=== PATIENT | male | born 1945 | race African-American/Black ===

== ENCOUNTER 2016-07-25 17:23 | Emergency (ER) | payer OTHER ==
[~2016-07-25] VITALS: Ht 167.6 cm; Wt 63.5 kg
[2016-07-25 18:00] LABS: EOSINOPHILS % (AUTO) 0.2 % (0.0-3.0); LYMPHOCYTES % (AUTO) 38.1 % (20.0-45.0); MEAN CORPUSCULAR HEMOGLOBIN 26.3 PG (27.0-31.0); MEAN CORPUSCULAR HGB CONC 31.8 G/DL (32.0-36.0); MEAN CORPUSCULAR VOLUME 83 FL (80-99); MEAN PLATELET VOLUME 7.8 FL (6.5-10.1); MONOCYTES % (AUTO) 12.9 % (1.0-10.0); NEUTROPHILS % (AUTO) 47.8 % (45.0-75.0); PLATELET COUNT 160 K/UL (150-450); RED BLOOD COUNT 4.76 M/UL (4.70-6.10); RED CELL DISTRIBUTION WIDTH 13.3 % (11.6-14.8); WHITE BLOOD COUNT 5.3 K/UL (4.8-10.8)
[2016-07-25 18:02] VITALS: BP 136/81
[2016-07-25 18:18] LABS: TROPONIN I < 0.30 ng/mL (<=0.30)
[2016-07-25 18:22] LABS: ALANINE AMINOTRANSFERASE 14 U/L (3-41); ALBUMIN/GLOBULIN RATIO 1.5 (1.0-2.7); ANION GAP 20 (5-15); ASPARTATE AMINO TRANSFERASE 25 U/L (5-40); CARBON DIOXIDE 22 mEQ/L (20-30); CHLORIDE 97 mEQ/L (98-107); CHOLESTEROL 83 mg/dL (< 200); CREATININE 1.5 mg/dL (0.7-1.2); HEMOLYSIS 13; LDL CHOLESTEROL (CALC.) 37 mg/dL (60-99); POTASSIUM 4.2 mEQ/L (3.4-4.9); SODIUM 139 mEQ/L (135-145)
[2016-07-25 18:32] LABS: CKMB 1.8 ng/mL (< 6.7); PROTHROMBIN TIME 10.4 SEC (9.30-11.50)
[2016-07-25 19:36] VITALS: BP 140/72
[2016-07-25 20:42] VITALS: BP 137/75
--- NOTE | 2016-07-25 21:24 | Emergency Room Report ---
History of Present Illness General Chief Complaint: Stroke Symptoms Source: Patient Present Illness HPI 71-year-old male presents ED for evaluation. 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 States that when she saw the patient today at 3 PM he had these symptoms. Unknown last known well time. Patient denies any leg or arm weakness. Denies any chest pain or shortness of breath. 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 Patient was seen at PMD office today and was asked to come to ED for further evaluation. No other aggravating or relieving factors. Denies any other associated symptoms Allergies: Coded Allergies: No Known Allergies (Unverified , 07/25/16) Patient History Past Medical History: none Past Surgical History: none Pertinent Family History: none Social History: Denies: alcohol use, drug use, smoking Immunizations: UTD Reviewed Nursing Documentation: PMH: Agreed, PSxH: Agreed Nursing Documentation-PMH Past Medical History: No Stated History Review of Systems All Other Systems: negative except mentioned in HPI Physical Exam Vital Signs Date Time Temp Pulse Resp B/P Pulse Ox O2 Delivery O2 Flow Rate FiO2 07/25/16 17:31 97.9 73 18 126/69 100 Room Air Sp02 EP Interpretation: reviewed, normal General Appearance: no apparent distress, alert, GCS 15, non-toxic Head: normocephalic Eyes: bilateral eye PERRL, bilateral eye normal inspection ENT: normal ENT inspection Neck: full range of motion Respiratory: chest non-tender, lungs clear, normal breath sounds, speaking full sentences Cardiovascular #1: regular rate, rhythm, no edema Gastrointestinal: normal bowel sounds, non tender, soft, non-distended, no guarding, no rebound Rectal: deferred Genitourinary: no CVA tenderness Musculoskeletal: normal inspection Neurologic: alert, oriented x3, responsive, motor strength/tone normal, sensory intact, facial droop, other - slurred speech Psychiatric: judgement/insight normal, memory normal, mood/affect normal, no suicidal/homicidal ideation Skin: normal inspection Lymphatic: normal inspection Medical Decision Making Diagnostic Impression: Primary Impression: CVA (cerebral vascular accident) Qualified Codes: I63.9 - Cerebral infarction, unspecified Additional Impression: ARF (acute renal failure) Qualified Codes: N17.9 - Acute kidney failure, unspecified ER Course Hospital Course 71-year-old male presents ED with search recent facial droop. Last known well time unknown Differential diagnoses include: VT/unstable angina, SVT/Vtach/AFib, CVA/TIA Clinical course Patient placed on stretcher. on controlled atmospheric furnace brazer. After initial history and physical I ordered labs, EKG, and CT head labs reviewed- Cr 1.5, troponins negative, no leukocytosis, Hb/Hct stable EKG - NSR, no acute changes CT brain - no acute process noted Given aspirin in ED. no TPA given as patient is out of window for thrombolytic therapy Because of insurance patient will be transferred I. I feel this is a highly complex case requiring extensive working including EKG/Rhythm strip, Xray/CT/US, Blood/urine lab work, repeat exams while in ED, and administration of strong opiates/narcotics for pain control, admission to hospital or close patient follow up. Diagnosis - CVA, ARF Transferred in serious condition Labs Test 07/25/16 17:46 White Blood Count 5.3 K/UL (4.8-10.8) Red Blood Count 4.76 M/UL (4.70-6.10) Hemoglobin 12.5 G/DL (14.2-18.0) Hematocrit 39.4 % (42.0-52.0) Mean Corpuscular Volume 83 FL (80-99) Mean Corpuscular Hemoglobin 26.3 PG (27.0-31.0) Mean Corpuscular Hemoglobin Concent 31.8 G/DL (32.0-36.0) Red Cell Distribution Width 13.3 % (11.6-14.8) Platelet Count 160 K/UL (150-450) Mean Platelet Volume 7.8 FL (6.5-10.1) Neutrophils (%) (Auto) 47.8 % (45.0-75.0) Lymphocytes (%) (Auto) 38.1 % (20.0-45.0) Monocytes (%) (Auto) 12.9 % (1.0-10.0) Eosinophils (%) (Auto) 0.2 % (0.0-3.0) Basophils (%) (Auto) 1.0 % (0.0-2.0) Prothrombin Time 10.4 SEC (9.30-11.50) Prothromb Time International Ratio 1.0 (0.9-1.1) Activated Partial Thromboplast Time 28 SEC (23-33) Sodium Level 139 mEQ/L (135-145) Potassium Level 4.2 mEQ/L (3.4-4.9) Chloride Level 97 mEQ/L (98-107) Carbon Dioxide Level 22 mEQ/L (20-30) Anion Gap 20 (5-15) Blood Urea Nitrogen 19 mg/dL (7-23) Creatinine 1.5 mg/dL (0.7-1.2) Estimat Glomerular Filtration Rate mL/min (>60) Glucose Level 113 mg/dL (74-106) Calcium Level 9.0 mg/dL (8.6-10.2) Total Bilirubin 0.6 mg/dL (0.0-1.2) Aspartate Amino Transf (AST/SGOT) 25 U/L (5-40) Alanine Aminotransferase (ALT/SGPT) 14 U/L (3-41) Alkaline Phosphatase 85 U/L (40-129) Total Creatine Kinase 501 U/L (38-174) Creatine Kinase MB 1.8 ng/mL (< 6.7) Creatine Kinase MB Relative Index 0.3 Troponin I < 0.30 ng/mL (<=0.30) Total Protein 7.0 g/dL (6.6-8.7) Albumin 4.2 g/dL (3.5-5.2) Globulin 2.8 g/dL Albumin/Globulin Ratio 1.5 (1.0-2.7) Triglycerides Level 90 mg/dL (< 150) Cholesterol Level 83 mg/dL (< 200) LDL Cholesterol 37 mg/dL (60-99) HDL Cholesterol 28 mg/dL (> 60) Cholesterol/HDL Ratio 3.0 (3.3-4.4) EKG Diagnostic Results Rate: normal Rhythm: NSR ST Segments: no acute changes ASA given to the pt in ED: No Rhythm Strip Diag. Results EP Interpretation: yes Rhythm: NSR, no PVC's, no ectopy CT/MRI/US Diagnostic Results CT/MRI/US Diagnostic Results : Imaging Test Ordered: CT head Impression no acute process Last Vital Signs Date Time Temp Pulse Resp B/P Pulse Ox O2 Delivery O2 Flow Rate FiO2 07/25/16 20:42 98.3 70 15 137/75 100 Room Air Status: improved Disposition: XFER SHT-TRM HOSP Condition: Serious Referrals: [facility],REFERRING (PCP) MITCH RAZO M.D. Jul 25, 2016 21:24
[2016-07-25 21:36] VITALS: BP 137/75
--- NOTE | 2016-07-26 10:10 | Diagnostic Imaging Report ---
Indication: Acute CVA Technique: Contiguous 5 mm thick transaxial imaging of the head obtained in a Siemens Sensation [address] scanner. Soft tissue and bone windows generated. Total Dose length Product (DLP): [address] Dose Index Volume (CTDIvol): 70.38 mGy Comparison: none Findings: There is moderate prominence of the ventricles, basal cisterns, and cerebral sulci consistent with atrophy. Moderate, nonspecific, white matter hypoattenuation is noted throughout the brain consistent with chronic small vessel disease. There is no midline shift, edema, acute hemorrhage, mass effect, or abnormal extra-axial fluid collections. Bones and extra osseous soft tissues are unremarkable. There is mucosal thickening within the paranasal sinuses. There is sclerosis and lack of pneumatization of the right mastoid. There is a prominent erosion or postsurgical defect involving the right epitympanum. Impression: No acute intracranial bleed, mass effect or edema. Moderate atrophy of the brain. Evidence of chronic small vessel disease involving white matter tracts. Chronic right mastoiditis. Query previous surgery. Sinusitis The CT scanner at [facility] is accredited by the [employer] and the scans are performed using protocols designed to limit radiation exposure to as low as reasonably achievable to attain images of sufficient resolution adequate for diagnostic evaluation.
--- NOTE | 2016-07-26 18:31 | Cardiology Report ---
APPROVED REPORT EKG Measurement Heart [id number] Normal sinus rhythm Nonspecific T wave abnormality Abnormal ECG
== END 2016-07-25 21:36 | disposition short-term general hospital (02) ==
LOC: EMR 18:24
DX: I63.9 Cerebral infarction, unspecified (principal); N17.9 Acute kidney failure, unspecified; H70.11 Chronic mastoiditis, right ear; J32.9 Chronic sinusitis, unspecified; G31.9 Degenerative disease of nervous system, unspecified
CPT/HCPCS: 36415; 70450; 80053; 80061; 82550; 82553; 82962; 84484; 85025; 85610; 85730; 93005

== ENCOUNTER 2017-03-12 08:54 | Inpatient (IN) | payer MEDICARE, OTHER ==
[~2017-03-12] VITALS: Ht 177.8 cm; Wt 77.1 kg
[2017-03-12 09:10] VITALS: BP 143/91
[2017-03-12 09:13] LABS: BASOPHILS % (AUTO) 1.6 % (0.0-2.0); EOSINOPHILS % (AUTO) 3.8 % (0.0-3.0); LYMPHOCYTES % (AUTO) 39.3 % (20.0-45.0); MEAN CORPUSCULAR HEMOGLOBIN 26.1 PG (27.0-31.0); MEAN CORPUSCULAR VOLUME 84 FL (80-99); MEAN PLATELET VOLUME 7.4 FL (6.5-10.1); MONOCYTES % (AUTO) 9.8 % (1.0-10.0); NEUTROPHILS % (AUTO) 45.4 % (45.0-75.0); PLATELET COUNT 301 K/UL (150-450); RED BLOOD COUNT 5.47 M/UL (4.70-6.10); RED CELL DISTRIBUTION WIDTH 13.1 % (11.6-14.8); WHITE BLOOD COUNT 6.2 K/UL (4.8-10.8)
[2017-03-12 09:23] LABS: ANION GAP 4 mmol/L (5-15); CARBON DIOXIDE 29 MMOL/L (21-32); CHLORIDE 107 MMOL/L (98-107); CREATININE 1.2 MG/DL (0.55-1.30); POTASSIUM 4.8 MMOL/L (3.5-5.1); SODIUM 140 MMOL/L (136-145)
[2017-03-12 09:29] LABS: ALANINE AMINOTRANSFERASE 20 U/L (12-78); ALBUMIN/GLOBULIN RATIO 1.1 (1.0-2.7); ASPARTATE AMINO TRANSFERASE 14 U/L (15-37); TOTAL PROTEIN 7.1 G/DL (6.4-8.2); VALPROIC ACID 6 MCG/ML (50-100)
[2017-03-12 09:36] LABS: APPEARANCE,URINE CLEAR; KETONES,URINE NEGATIVE (NEGATIVE); LEUKOCYTE ESTERASE ,URINE NEGATIVE (NEGATIVE); NITRITE,URINE NEGATIVE (NEGATIVE); PH,URINE 6.5 (4.5-8.0); PROTEIN,URINE NEGATIVE (NEGATIVE); UROBILINOGEN,URINE NORMAL MG/DL (0.0-1.0)
[2017-03-12] MEDS ORDERED: levETIRAcetam 1,000mg/NS100ml 100 ML IVPB ONE (09:45)
[2017-03-12 09:52] LABS: ACETAMINOPHEN < 2 MCG/ML (10-30); ALCOHOL < 3 mg/dL
[2017-03-12] MEDS ORDERED: FOLIC ACID1 MG ORAL (10:06)
[2017-03-12] MEDS ORDERED: COLACE100 MG ORAL (10:06)
[2017-03-12] MEDS ORDERED: ASPIRIN325 MG ORAL (10:06)
[2017-03-12] MEDS ORDERED: LIPITOR20 MG ORAL (10:06)
[2017-03-12] MEDS ORDERED: LEXAPRO10 MG ORAL (10:06)
[2017-03-12] MEDS ORDERED: CARVEDILOL6.25 MG ORAL (10:06)
[2017-03-12] MEDS ORDERED: LEVETIRACETAM500 MG ORAL (10:06)
[2017-03-12] MEDS ORDERED: LISINOPRIL10 MG ORAL (10:06)
--- NOTE | 2017-03-12 10:28 | Diagnostic Imaging Report ---
Indication: Altered mental status and seizures Technique: spiral acquisitions obtained through the brain. Angled axial and coronal 5 x 5 mm slices were reconstructed. No IV contrast utilized. Radiation dose was minimized using automated exposure control Total dose length product 1580 mGycm. CTDIvol(s) 70 mGy Comparison: 06/28/2016 FINDINGS: No acute hemorrhage or edema. No mass effect or midline shift. There is age-related enlargement of the ventricles and extra axial CSF spaces. There is periventricular deep white matter ischemic change. Normal szymanski-white differentiation. Visualized orbits are unremarkable. Visualized sinuses are unremarkable. Intact calvarium. There is evidence of prior right mastoid surgery there is interim clearing of the opacities previously seen within the right external auditory canal and mastoid antrum IMPRESSION: Chronic and age-related changes. Negative for acute intracranial bleed or mass effect Other findings as noted The CT scanner at [facility] is accredited by the [employer] and the scans are performed using protocols designed to limit radiation exposure to as low as reasonably achievable to attain images of sufficient resolution adequate for diagnostic evaluation
--- NOTE | 2017-03-12 10:46 | Emergency Room Report ---
History of Present Illness General Chief Complaint: Seizure Source: Medical Record Present Illness HPI 71YOM BIBEMS from SNF with suspected seizure activity Known seizures, on Keppra No trauma HPI is otherwise limited - I was in a code blue when EMS brought patient in and they were not here by time I came back to ED Patient only stating his name was a response to any question PMHx History of dysphagia, HTN, known epilepsy, encephalopathy On keppra Was here in June 2016 for ?CVA - was transferred out Per paperwork, Dec 2016 Allergies: Coded Allergies: No Known Allergies (Unverified , 07/25/16) Patient History Past Medical History: other Past Surgical History: unable to obtain Pertinent Family History: unable to obtain Social History: Denies: smoking, alcohol use, drug use Immunizations: UTD Reviewed Nursing Documentation: PMH: Agreed, PSxH: Agreed Nursing Documentation-PMH Hx Hypertension: Yes Hx Neurological Problems: Yes - Encephalopathy, Cerebral infarction, dysphagia Hx Seizures: Yes Review of Systems All Other Systems: limited - Limtied by patient's dysphasia Physical Exam Vital Signs Date Time Temp Pulse Resp B/P (MAP) Pulse Ox O2 Delivery O2 Flow Rate FiO2 03/12/17 08:46 98.2 76 15 153/84 100 Room Air 03/12/17 09:10 100 Sp02 EP Interpretation: reviewed, normal General Appearance: normal inspection, well appearing, no apparent distress, alert, GCS 15, non-toxic Head: normocephalic, atraumatic Eyes: bilateral eye PERRL, bilateral eye EOMI ENT: normal ENT inspection, hearing grossly normal, normal voice Neck: normal inspection, full range of motion, supple, no bony tend Respiratory: normal inspection, lungs clear, normal breath sounds, no respiratory distress, no retraction, no wheezing Cardiovascular #1: regular rate, rhythm, no edema Gastrointestinal: normal inspection, normal bowel sounds, non tender, soft, no guarding, no hernia Genitourinary: no CVA tenderness Musculoskeletal: normal inspection, back normal, normal range of motion, Tete' s Sign negative Neurologic: normal inspection, alert, responsive, tariff supervisor III-XII nml as tested, motor strength/tone normal, speech normal Psychiatric: normal inspection, judgement/insight normal, mood/affect normal Skin: normal inspection, normal color, no rash Medical Decision Making Medicare Attestation I Jada Story MD hereby attest that the medical record entry for date of service, 03/12/17 accurately reflects signatures/notations that I made in my capacity as MD when I treated/diagnosed the above listed Medicare beneficiary. I attest that this information is true, accurate and complete to the best of my knowledge. I understand that any falsification, omission, or concealment of material fact may subject me to administrative, civil, or criminal liability. This patient warrants hospital admission for extreme of age and has a condition that cannot be treated as outpatient. Diagnostic Impression: Primary Impression: Seizure disorder ER Course Witnsessed seizure, likely breakthru - possible related to previous CVA On keppra IV Keppra given here No focal motor neuro extremities deficits Patient repeatedly just states his name when asked any questions It is unknown if he has history of dysphasia or, if this is new, when it started Because of this, thombolytics not indicated at this time Labs review: No acute abnormalitiies No acute changes on CT head here Endorsed to Dr Pires for Dr Dan at 1044am Tele admit EKG Diagnostic Results Rate: normal Rhythm: NSR ST Segments: no acute changes ASA given to the pt in ED: No Rhythm Strip Diag. Results EP Interpretation: yes Rate: 67 Rhythm: NSR, no PVC's, no ectopy Last Vital Signs Date Time Temp Pulse Resp B/P (MAP) Pulse Ox O2 Delivery O2 Flow Rate FiO2 03/12/17 09:10 98.1 69 17 143/91 100 Room Air 100 Status: improved Disposition: ADMITTED INPATIENT Condition: Serious Referrals: ELODIA DAN (PCP) JADA STORY M.D. Mar 12, 2017 10:46
[2017-03-12 11:15] VITALS: BP 149/77
[2017-03-12 11:38] VITALS: BP 161/87
--- NOTE | 2017-03-12 12:45 | Neurology Progress Note ---
Objective Physical Exam Last Vital Signs Date Time Temp Pulse Resp B/P (MAP) Pulse Ox O2 Delivery O2 Flow Rate FiO2 03/12/17 11:38 97.5 64 19 161/87 98 Room Air 03/12/17 11:15 100 Laboratory Tests Test 03/12/17 09:00 03/12/17 09:25 White Blood Count 6.2 K/UL (4.8-10.8) Red Blood Count 5.47 M/UL (4.70-6.10) Hemoglobin 14.3 G/DL (14.2-18.0) Hematocrit 46.0 % (42.0-52.0) Mean Corpuscular Volume 84 FL (80-99) Mean Corpuscular Hemoglobin 26.1 PG (27.0-31.0) L Mean Corpuscular Hemoglobin Concent 31.0 G/DL (32.0-36.0) L Red Cell Distribution Width 13.1 % (11.6-14.8) Platelet Count 301 K/UL (150-450) Mean Platelet Volume 7.4 FL (6.5-10.1) Neutrophils (%) (Auto) 45.4 % (45.0-75.0) Lymphocytes (%) (Auto) 39.3 % (20.0-45.0) Monocytes (%) (Auto) 9.8 % (1.0-10.0) Eosinophils (%) (Auto) 3.8 % (0.0-3.0) H Basophils (%) (Auto) 1.6 % (0.0-2.0) Sodium Level 140 MMOL/L (136-145) Potassium Level 4.8 MMOL/L (3.5-5.1) Chloride Level 107 MMOL/L (98-107) Carbon Dioxide Level 29 MMOL/L (21-32) Anion Gap 4 mmol/L (5-15) L Blood Urea Nitrogen 15 mg/dL (7-18) Creatinine 1.2 MG/DL (0.55-1.30) Estimat Glomerular Filtration Rate mL/min (>60) Glucose Level 92 MG/DL (74-106) Calcium Level 9.0 MG/DL (8.5-10.1) Total Bilirubin 0.7 MG/DL (0.2-1.0) Aspartate Amino Transf (AST/SGOT) 14 U/L (15-37) L Alanine Aminotransferase (ALT/SGPT) 20 U/L (12-78) Alkaline Phosphatase 104 U/L (46-116) Troponin I 0.005 ng/mL (0.000-0.056) Total Protein 7.1 G/DL (6.4-8.2) Albumin 3.7 G/DL (3.4-5.0) Globulin 3.4 g/dL Albumin/Globulin Ratio 1.1 (1.0-2.7) Salicylates Level 0.9 ug/mL (2.8-20) L Acetaminophen Level < 2 MCG/ML (10-30) L Phenytoin (Dilantin) Level < 0.4 ug/mL (10-20) L Valproic Acid (Depakene) Level 6 MCG/ML (50-100) L Phenobarbital Level < 1.0 ug/mL (15-40) L Serum Alcohol < 3 mg/dL Urine Color Pale yellow Urine Appearance Clear Urine pH 6.5 (4.5-8.0) Urine Specific [place] 1.005 (1.005-1.035) Urine Protein Negative (NEGATIVE) Urine Glucose (UA) Negative (NEGATIVE) Urine Ketones Negative (NEGATIVE) Urine Occult Blood Negative (NEGATIVE) Urine Nitrite Negative (NEGATIVE) Urine Bilirubin Negative (NEGATIVE) Urine Urobilinogen Normal MG/DL (0.0-1.0) Urine Leukocyte Esterase Negative (NEGATIVE) Impression/Recommendations Problems: (1) acute onset of expressive aphasia. r/o acute iaschemic stroke (2) Seizure disorder Status: stable Recommendations examined----- orders given EFE ZUNIGA Mar 12, 2017 12:45
[2017-03-12] MEDS: LORazepam Inj 2mg/ml 1ml IV PRN (13:04)
[2017-03-12] MEDS ORDERED: Haloperidol Decanoate 50mg Inj IM ONE (14:45)
[2017-03-12] MEDS ORDERED: Haloperidol 5mg/ml Inj IM ONE (15:15)
[2017-03-12 15:46] VITALS: BP 125/75
[2017-03-12] MEDS ORDERED: LORazepam Inj 2mg/ml 1ml IV PRN (17:45)
[2017-03-12 20:00] VITALS: BP 136/76
[2017-03-12] MEDS: Docusate 100mg cap ORAL SCH (20:23)
[2017-03-12] MEDS: Phenytoin 100mg cap ORAL SCH (21:20)
[2017-03-12] MEDS: Carvedilol 6.25mg Tab ORAL SCH (21:21)
[2017-03-12] MEDS: Atorvastatin 20mg tab ORAL SCH (21:21)
[2017-03-12] MEDS: Enoxaparin 60mg Inj SUBQ SCH (22:26)
[2017-03-13] VITALS (9 sets, daily range): BP systolic 125–164; BP diastolic 66–95
--- NOTE | 2017-03-13 01:45 | History and Physical Report ---
DATE OF ADMISSION: 03/12/2017 HISTORY OF PRESENT ILLNESS: This is a 71-year-old male, came to the emergency room for altered mental status and seizure. The patient currently alert, awake, and feeling better. He has no distress. PAST MEDICAL HISTORY: Seizure and hypertension. MEDICATIONS: See the list. ALLERGIES: NKA. PHYSICAL EXAMINATION: GENERAL: This is an elderly male, who is currently awake, comfortable. VITAL SIGNS: Blood pressure is 130/70, pulse 64, respirations 18. No fever. SKIN: Good skin turgor. HEENT: AT/NC. EOMI. PERRLA. NECK: Supple. No JVD. CHEST: Bilaterally clear. CARDIOVASCULAR: Regular rhythm. No gallop. No murmur. ABDOMEN: Soft. Positive bowel sounds. Nontender. GENITOURINARY: Deferred. EXTREMITIES: No swelling. LABORATORY AND DIAGNOSTIC DATA: Not available. ASSESSMENT AND PLAN: 1. Altered mental status. 2. Seizure. 3. Hypertension. 4. Generalized weakness. We will currently continue current treatment. Consider Neurology consult. Continue current medical treatment. Advance diet. We will give him IV fluid, Ativan, and follow up the lab. Add Dilantin. Continue Keppra. Kenrick Lakhani M.D. DR: Maurice JOB#: [id number] CC:
[2017-03-13] MEDS: LORazepam Inj 2mg/ml 1ml IV PRN ×2 (05:18→15:16)
[2017-03-13] MEDS: Carvedilol 6.25mg Tab ORAL SCH ×2 (08:09→21:09)
[2017-03-13] MEDS: Docusate 100mg cap ORAL SCH ×2 (08:11→17:08)
[2017-03-13] MEDS: Lisinopril 10mg tab ORAL SCH (08:12)
[2017-03-13] MEDS: Enoxaparin 60mg Inj SUBQ SCH ×2 (08:14→21:10)
--- NOTE | 2017-03-13 08:32 | Diagnostic Imaging Report ---
Indication: Altered mental status Technique: sagittal T1 fast spin echo, axial T1 FLAIR, axial T2 FLAIR, axial T2 FS PROPELLER, axial T2* GRE, axial diffusion weighted images. ADC and exponential ADC maps generated Comparison: Head CT earlier the same day Findings:There is some image degradation due to patient motion. Lacunar infarcts are seen in the bilateral thalami, bilateral noel radiata, and centrally within the rajeev. There is extensive periventricular deep white matter low-attenuation. There is suggestion of some cortical encephalomalacia in the posterior left temporal lobe. No abnormal areas of restricted diffusion to suggest acute infarction. No acute hemorrhage or edema. No mass effect nor midline shift. Is marked age-related enlargement of ventricles and extra-axial CSF spaces. Visualized orbits and sinuses are unremarkable. The vascular flow voids are preserved. Impression: Chronic and age-related changes, as described. Old lacunar infarcts, as described Negative for acute intracranial bleed or mass effect or infarct
--- NOTE | 2017-03-13 10:22 | Cardiac Electrophysiology PN ---
Subjective Subjective `Cardiology consult dictated.HTN, Abn ECG, Syncope vs Seizure. # [id number] Objective Last 24 Hour Vital Signs Date Time Temp Pulse Resp B/P (MAP) Pulse Ox O2 Delivery O2 Flow Rate FiO2 03/13/17 08:12 164/79 03/13/17 08:09 54 164/79 03/13/17 08:00 63 03/13/17 08:00 97.7 54 20 164/79 98 Room Air 03/13/17 05:15 96.6 68 16 138/86 99 Room Air 03/13/17 04:11 97.9 69 20 125/77 96 Room Air 03/13/17 04:00 62 03/13/17 00:36 97.8 66 18 129/74 96 Room Air 03/13/17 00:00 64 03/12/17 21:21 64 129/73 03/12/17 20:00 81 03/12/17 20:00 97.9 84 20 136/76 96 Room Air 03/12/17 16:00 62 03/12/17 15:46 97.3 61 20 125/75 97 Room Air 03/12/17 11:38 97.5 64 19 161/87 98 Room Air 03/12/17 11:24 68 03/12/17 11:15 98.1 62 16 149/77 100 Room Air 100 03/12/17 11:15 62 16 149/77 100 Room Air 100 Intake and Output 03/13/17 03/14/17 19:00 07:00 Intake Total 225 ml Balance 225 ml IV Total 225 ml Microbiology Date/Time Source Procedure Growth Status 03/12/17 09:30 Nasal Nares Received 03/12/17 09:30 Rectum Received KAI LINDSAY Mar 13, 2017 10:22
--- NOTE | 2017-03-13 12:28 | Neurology Progress Note ---
Interim History Interim History ROS Limited/Unobtainable: Yes Complaints: none Events: no sz noted Objective Physical Exam Last Vital Signs Date Time Temp Pulse Resp B/P (MAP) Pulse Ox O2 Delivery O2 Flow Rate FiO2 03/13/17 12:00 97.5 80 19 140/85 98 Room Air 03/12/17 11:15 100 General: well developed, well nourished, no acute distress Head: normocophalic, atraumatic Neck: no rigidity Neurologic Exam Mental Status: awake, alert, other - ox2, confused Speech: no dysarthia Language: other - word finding difficulty Cranial Nerve II: no papilledema Cranial Nerves III, IV, : pupils Cranial Nerve V: masseters function normal Cranial Nerve VII: normal facial expressions Cranial Nerve VIII: no nystagmus Cranial Nerve IX: gag response Cranial Nerve XI: trapezii function normal Cranial Nerve XII: no tongue atrophy/fasciculations Motor System: strength 5/5, no involuntary movement, no muscle wasting Sensory: normal pinprick Coordination: other - +romberg Deep Tendon Reflexes: 1+ bicep (L), 1+ bicep (R), 1+ tricep (L), 1+ tricep (R) , 1+ brachioradialis (L), 1+ brachioradialis (R), 1+ knee (L), 1+ knee (R), 1+ ankle (L), 1+ ankle (R) Reflexes: mute plantar (L), mute plantar (R) Stance: other - unstable Gait: other - unstable Impression/Recommendations Problems: (1) chronic seizure disorder, exacerbation (2) extensive ischemic cerebrovascular disease (3) multiple lacunar strokes, old Status: stable Recommendations examined----- orders given # [id number] keppra 1000mg bid EEG EFE ZUNIGA Mar 13, 2017 12:28
[2017-03-13 15:37] LABS: INR 1.1 (0.9-1.1); PROTHROMBIN TIME 11.3 SEC (9.30-11.50)
--- NOTE | 2017-03-13 16:45 | Diagnostic Imaging Report ---
APPROVED REPORT CPT Code: 41207 Vascular Symptoms Syncope Doppler Spectral Velocity Analysis RightLeft RIGHT SIDE: CCA/ECA - Imaging reveals no significant plaque in the common carotid and external carotid arteries. ICA - Imaging reveals irregular plaque in the internal carotid artery. The Doppler signal indicates the degree of stenosis is mild (30%) in the internal carotid artery. LEFT SIDE: CCA/ECA - Imaging reveals no significant plaque in the common carotid and external carotid arteries. ICA - Imaging reveals irregular plaque in the internal carotid artery. The Doppler signal indicates the degree of stenosis is mild (30%) in the internal carotid artery. VERTEBRAL- The vertebral arteries are within normal limits, bilaterally.
--- NOTE | 2017-03-13 16:47 | Diagnostic Imaging Report ---
APPROVED REPORT CPT Code: 34746 Present Symptoms Lower Extremity Pain: Comments: Hx HTN, DVT. RIGHT LEG: Venous imaging reveals a patent deep venous system. There is no evidence of thrombus within the femoral, popliteal or tibial segments. The greater saphenous vein is also within normal limits. Doppler indicates normal spontaneous flow within these segments. LEFT LEG: Venous imaging reveals acute, non-occlusive thrombus in the proximal superficial femoral vein. The tip is distal to the confluence of the proximal superficial femoral and profunda femoris veins. Imaging also reveals patency of the common femoral, mid and distal superficial femoral, popliteal and calf veins. The greater saphenous vein is within normal limits. ELISEO Villanueva was informed of abnormal results at 21:05 hrs.
[2017-03-13] MEDS ORDERED: Warfarin Sodium 5mg ORAL ONE (17:00)
--- NOTE | 2017-03-13 17:15 | Consultation ---
DATE OF CONSULTATION: 03/13/2017 CARDIOLOGY CONSULTATION CONSULTING PHYSICIAN: Tyler Conn M.D. REFERRING PHYSICIAN: Darius Rico M.D. REASON FOR CONSULTATION: Management of hypertension and syncope. HISTORY OF PRESENT ILLNESS: The patient is a 71-year-old gentleman with history of hypertension and seizure disorder who was brought to the hospital for altered mental status. The patient was confused and information was limited to the chart. The patient is not able to provide any meaningful information. The patient was then admitted and a Cardiology consultation was obtained for further evaluation. PAST MEDICAL HISTORY: 1. Hypertension. 2. Seizure disorder. MEDICATIONS: Per reconciliation. ALLERGIES: He has no known drug allergies. REVIEW OF SYSTEMS: His review of systems was negative other than what was mentioned in the history of present illness. PHYSICAL EXAMINATION: VITAL SIGNS: Blood pressure of 164/79, pulse 54, respirations 18, and temperature 97.7 degrees. HEAD AND NECK: No JVD. LUNGS: Clear. CARDIOVASCULAR: Regular S1 and S2 with no gallop or murmur. ABDOMEN: Soft. EXTREMITIES: No pitting edema. LABORATORY AND DIAGNOSTIC DATA: His laboratory show white count of 6.2, hemoglobin 14.0, hematocrit of 46, and platelet count 301. Sodium 140, potassium is 4.8, BUN of 15, creatinine 1.2, and glucose of 92. Troponin is negative. Urine toxicology is negative. Urinalysis is negative. ASSESSMENT AND PLAN: 1. Syncope versus seizures. The patient does not have any arrhythmia on telemetry. We will get an EKG and get an echocardiogram to evaluate for ejection fraction and wall motion abnormality. The EKG in chart showed sinus rhythm with nonspecific inferior ST-T wave abnormalities. The EKG will be repeated as well. 2. Hypertension. Continue lisinopril 10 mg daily and Coreg 6.25 mg b.i.d. I will add p.r.n. clonidine to his medical regimen. 3. Hyperlipidemia, on Lipitor. 4. Seizure disorder, on Dilantin and Haldol, under management of Dr. Kimble. Thank you very much, Dr. Rico and Dr. Lakhani, for allowing me to participate in the care of this patient. Please do not hesitate to contact me for any questions regarding my evaluation. Tyler Conn M.D. DR: ANGEL JOB#: [id number] CC:
--- NOTE | 2017-03-13 21:00 | Consultation ---
DATE OF CONSULTATION: 03/12/2017 NEUROLOGICAL CONSULTATION DATE OF ADMISSION: 03/12/2017. REQUESTING PHYSICIAN: Darius Rico M.D. PRIMARY DOCTOR: Vin Lakhani M.D. HISTORY OF PRESENT ILLNESS: A 71-year-old man, resident of a nursing care facility, was brought to this hospital for assessment of possible seizure event. Paramedics were called to the scene, found him sitting in the bed being "postictal." While the facility informed that the patient had one witnessed seizure episode lasting 30 seconds without any trauma, the patient was found to be confused, disoriented, and nursing staff informed that the patient did not take his seizure medication in the morning. He was brought to emergency room, where he was not responding verbally except keep repeating the same word. His vital signs were stable. Blood pressure 153/84 and temperature 98.2 degrees. The patient was given extra dose of IV Keppra. During examination, there was no focal deficit noted. The patient appears to have evidence of aphasia. His EKG normal sinus rhythm. His imaging study included a CT scan of the brain, which revealed chronic age-related changes, negative for acute abnormality. This followed by MRI of the brain without contrast. This revealed a lacunar infarct, bilateral thalami, bilateral noel radiata and within the rajeev, with extensive periventricular deep white matter low attenuation, suggestion of some cortical encephalomalacia in posterior left temporal lobe, but there was no evidence of acute stroke noted. Laboratory work included unremarkable CBC. Chemistry panel was essentially normal including troponin. Urinalysis was normal. Toxicology panel revealed no abnormality, with no evidence of anticonvulsant associated . The patient has extensive medical history. His treatment prior to admission included aspirin, atorvastatin, carvedilol, escitalopram, folate, Keppra 500 mg b.i.d., and lisinopril. The patient's medical issues included hypertension and seizure disorder. Since admission to present time, there was no further paroxysmal event noted. SOCIAL HISTORY: Resident of nursing facility. The patient originally from [facility]. REVIEW OF SYMPTOMS: The patient with significant aphasia and unable to provide with a history. PHYSICAL EXAMINATION: GENERAL: A well-developed, well-nourished man, not in acute distress. VITAL SIGNS: Stable. Blood pressure 125/77 and temperature 97.9 degrees. HEENT: Head: Normocephalic. No evidence of trauma. Eyes, ears, and throat are clear. NECK: Supple. No meningeal signs. MUSCULOSKELETAL: Examination unremarkable. No deformities. Peripheral pulses 1+ symmetric. MENTAL STATUS: The patient is alert. His speech is nonfluent. The patient continued to repeat some single words, unable to provide with any information, but was able to follow few simple commands. CRANIAL NERVES II: Pupils both responding to light and accommodation. Extraocular movement full range. CRANIAL NERVES V: Normal corneal responses. CRANIAL NERVES VII: No facial asymmetry. CRANIAL NERVES VIII: Grossly normal hearing. CRANIAL NERVES IX THROUGH XII: Tongue is in midline. Symmetric palate elevation. MOTOR EXAMINATION: Revealed slight rigidity diffusely, but strength 5/5 in both upper extremities and both lower extremities. No involuntary movement noted. No muscle wasting. Deep tendon reflexes 2+ bilaterally. Plantar response is mute. SENSORY EXAMINATION: Withdrawing to pin in both upper and lower extremities. Gait unstable, requires assistance. IMPRESSION: 1. Chronic seizure disorder, exacerbation with persistent postictal state. 2. 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 3. Expressive aphasia, cognitive loss, abnormal gait, all related to underlying cerebrovascular disease. RECOMMENDATIONS: Increase Keppra up 1000 mg b.i.d. Get EEG study. Observe for any paroxysmal events. Continue with aspirin, statins, and maintain on supportive care. Thank you for allowing me to see this interesting patient in neurological consultation. Mainor Kimble M.D. DR: Shubham JOB#: [id number] CC:
--- NOTE | 2017-03-13 21:00 | Progress Note ---
DATE: 03/13/2017 SUBJECTIVE: The patient is a 71-year-old male who is currently in bed, confused. He is removing his IV line. He has otherwise no distress. No seizure since yesterday. OBJECTIVE: VITAL SIGNS: His vital signs are stable. CHEST: Bilaterally clear. CARDIOVASCULAR: Regular rhythm. ABDOMEN: Soft. EXTREMITIES: No CCE. ASSESSMENT AND PLAN: 1. Altered mental status. 2. Seizure. 3. Probable dementia. We will consider psychiatric consult. Waiting for EEG. Continue current medical treatment. Discussed with charge nurse. Kenrick Lakhani M.D. DR: VIKASH JOB#: [id number] CC:
[2017-03-13] MEDS: Atorvastatin 20mg tab ORAL SCH (21:08)
[2017-03-13] MEDS: Phenytoin 100mg cap ORAL SCH (21:09)
[2017-03-14] MEDS: LORazepam Inj 2mg/ml 1ml IV PRN (00:22)
[2017-03-14 04:30] VITALS: BP 140/78
[2017-03-14 07:33] LABS: BASOPHILS % (AUTO) 1.7 % (0.0-2.0); EOSINOPHILS % (AUTO) 3.9 % (0.0-3.0); LYMPHOCYTES % (AUTO) 39.5 % (20.0-45.0); MEAN CORPUSCULAR HEMOGLOBIN 26.7 PG (27.0-31.0); MEAN CORPUSCULAR HGB CONC 31.9 G/DL (32.0-36.0); MEAN CORPUSCULAR VOLUME 84 FL (80-99); MEAN PLATELET VOLUME 6.8 FL (6.5-10.1); MONOCYTES % (AUTO) 9.7 % (1.0-10.0); NEUTROPHILS % (AUTO) 45.2 % (45.0-75.0); PLATELET COUNT 273 K/UL (150-450); RED BLOOD COUNT 5.17 M/UL (4.70-6.10); RED CELL DISTRIBUTION WIDTH 12.8 % (11.6-14.8)
[2017-03-14 07:42] VITALS: BP 140/80
[2017-03-14 07:49] LABS: PROTHROMBIN TIME 10.8 SEC (9.30-11.50)
[2017-03-14 07:56] LABS: ANION GAP 6 mmol/L (5-15); CALCIUM 8.7 MG/DL (8.5-10.1); CARBON DIOXIDE 26 MMOL/L (21-32); CHLORIDE 106 MMOL/L (98-107); CHOLESTEROL 91 MG/DL (< 200); CHOLESTEROL/HDL RATIO 2.9 (3.3-4.4); CREATININE 1.1 MG/DL (0.55-1.30); POTASSIUM 4.7 MMOL/L (3.5-5.1); SODIUM 138 MMOL/L (136-145); THYROID STIMULATING HORMONE 1.468 uiU/mL (0.360-3.740)
[2017-03-14] MEDS: Docusate 100mg cap ORAL SCH (09:00)
[2017-03-14] MEDS: Carvedilol 6.25mg Tab ORAL SCH (09:01)
[2017-03-14] MEDS: Lisinopril 10mg tab ORAL SCH (09:01)
[2017-03-14] MEDS: Enoxaparin 60mg Inj SUBQ SCH (09:02)
--- NOTE | 2017-03-14 09:02 | Consultation ---
DATE OF CONSULTATION: 03/13/2017 HEMATOLOGY/ONCOLOGY CONSULTATION CONSULTING PHYSICIAN: Hollis Yang M.D. REQUESTING PHYSICIAN: Darius Rico M.D. REASON FOR CONSULTATION: Evaluation of anticoagulation in a patient with a history of stroke as well as an acute nonocclusive thrombus in the proximal superficial vein in the left leg. IDENTIFICATION DATA: Dear Dr. Darius Rico, The patient is a pleasant 71-year-old male with past medical history, which is significant for seizure disorder, hypertension, at this time presents to the hospital with altered mental status, noted to be encephalopathic, confused, have DVT protocol assuming that the Hematology Service was consulted for further evaluation. PAST MEDICAL HISTORY: Seizure disorder. MEDICATIONS: Have been reviewed. ALLERGIES: No known drug allergies. SOCIAL HISTORY: No alcohol, tobacco, or drug use. FAMILY HISTORY: Noncontributory. REVIEW OF SYSTEMS: Difficult to obtain given mental status. PHYSICAL EXAMINATION: GENERAL: The patient is in no acute distress. VITAL SIGNS: Reviewed. PULMONARY: Decreased breath sounds. CARDIOVASCULAR: Regular rate. No S3 or S4. ABDOMEN: Soft, nontender, and nondistended. EXTREMITIES: There is 1+ edema. LABORATORY AND DIAGNOSTIC DATA: and platelet count 101,000. Imaging, left lower extremity duplex shows DVT. ASSESSMENT AND PLAN: 1. Left lower extremity deep venous thrombosis. We will begin the patient on Coumadin and Lovenox. INR goal between 2 and 3. In addition, given potential evidence of seizure, MRI of the brain completed and recommended use of aspirin. 2. Anemia, very mild, likely secondary to hemodilution. 3. Hypertension, currently is better controlled. 4. Seizure disorder, seen by Neurology Service under the care of Dr. Kimble. I appreciate the consultation. Hollis Yang M.D. DR: Angelina JOB#: [id number] CC:
[2017-03-14 12:00] VITALS: BP 137/69
--- NOTE | 2017-03-14 14:46 | Cardiac Electrophysiology PN ---
Assessment/Plan Assessment/Plan 1. Syncope versus seizures. The patient does not have any arrhythmia on telemetry. Echocardiogram showed Nl EF and The EKG is normal. Carotid duplex also negative. 2. Hypertension. Continue lisinopril 10 mg daily and Coreg 6.25 mg b.i.d. and p.r.n. clonidine 3. Hyperlipidemia, on Lipitor. 4. Seizure disorder, on Dilantin and Haldol, under management of Dr. Kimble. Steven RN Subjective Subjective Feeling better. No seizures overnight. Sister at bedside. Objective Last 24 Hour Vital Signs Date Time Temp Pulse Resp B/P (MAP) Pulse Ox O2 Delivery O2 Flow Rate FiO2 03/14/17 12:00 97.9 62 19 137/69 99 Room Air 03/14/17 09:01 63 140/80 03/14/17 09:01 140/80 03/14/17 09:01 63 140/80 03/14/17 07:42 97.0 63 20 140/80 98 Room Air 03/14/17 04:30 97.0 66 20 140/78 99 Room Air 03/14/17 04:00 68 03/14/17 00:00 79 03/13/17 23:45 97.0 68 20 140/80 100 Room Air 03/13/17 21:09 69 144/66 03/13/17 21:09 69 144/66 03/13/17 20:00 71 03/13/17 19:50 97.5 69 20 144/66 99 Room Air 03/13/17 16:00 62 03/13/17 16:00 97.8 98 22 150/95 95 Room Air Laboratory Tests Test 03/14/17 06:25 White Blood Count 6.0 K/UL (4.8-10.8) Red Blood Count 5.17 M/UL (4.70-6.10) Hemoglobin 13.8 G/DL (14.2-18.0) L Hematocrit 43.3 % (42.0-52.0) Mean Corpuscular Volume 84 FL (80-99) Mean Corpuscular Hemoglobin 26.7 PG (27.0-31.0) L Mean Corpuscular Hemoglobin Concent 31.9 G/DL (32.0-36.0) L Red Cell Distribution Width 12.8 % (11.6-14.8) Platelet Count 273 K/UL (150-450) Mean Platelet Volume 6.8 FL (6.5-10.1) Neutrophils (%) (Auto) 45.2 % (45.0-75.0) Lymphocytes (%) (Auto) 39.5 % (20.0-45.0) Monocytes (%) (Auto) 9.7 % (1.0-10.0) Eosinophils (%) (Auto) 3.9 % (0.0-3.0) H Basophils (%) (Auto) 1.7 % (0.0-2.0) Prothrombin Time 10.8 SEC (9.30-11.50) Prothromb Time International Ratio 1.0 (0.9-1.1) Sodium Level 138 MMOL/L (136-145) Potassium Level 4.7 MMOL/L (3.5-5.1) Chloride Level 106 MMOL/L (98-107) Carbon Dioxide Level 26 MMOL/L (21-32) Anion Gap 6 mmol/L (5-15) Blood Urea Nitrogen 10 mg/dL (7-18) Creatinine 1.1 MG/DL (0.55-1.30) Estimat Glomerular Filtration Rate mL/min (>60) Glucose Level 93 MG/DL (74-106) Calcium Level 8.7 MG/DL (8.5-10.1) Troponin I 0.008 ng/mL (0.000-0.056) Pro-B-Type Natriuretic Peptide 359 pg/mL (0-125) H Triglycerides Level 47 MG/DL (0-200) Cholesterol Level 91 MG/DL (< 200) LDL Cholesterol 53 mg/dL (<100) HDL Cholesterol 31 MG/DL (40-60) L Cholesterol/HDL Ratio 2.9 (3.3-4.4) L Thyroid Stimulating Hormone (TSH) 1.468 uiU/mL (0.360-3.740) Free Thyroxine 1.06 NG/DL (0.10-1.46) Microbiology Date/Time Source Procedure Growth Status 03/12/17 09:30 Nasal Nares MRSA Culture - Final NO METHICILLIN RESISTANT STAPH AUREUS... Complete 03/12/17 09:30 Rectum VRE Culture - Final NO VANCOMYCIN RESISTANT ENTEROCOCCUS ... Complete Objective HEAD AND NECK: No JVD. LUNGS: Clear. CARDIOVASCULAR: Regular S1 and S2 with no gallop or murmur. ABDOMEN: Soft. EXTREMITIES: No pitting edema. KAI LINDSAY Mar 14, 2017 14:46
[2017-03-14] MEDS ORDERED: 1/2 NS 1000ml IV ONE (15:46)
[2017-03-14] MEDS ORDERED: Warfarin Sodium 5mg ORAL ONE (17:00)
--- NOTE | 2017-03-14 18:52 | Consultation ---
History of Present Illness General Date patient seen: Mar 13, 2017 Chief Complaint: Seizure Present Illness HPI 71-year-old male, came to the emergency room for altered mental status and seizure. the pt was confused and a poor historian, at times agitated Allergies: Coded Allergies: No Known Allergies (Unverified , 07/25/16) Medication History Scheduled Aspirin* (Aspirin*), 325 MG ORAL DAILY, (Reported) Atorvastatin Calcium* (Lipitor*), 20 MG ORAL DAILY, (Reported) Carvedilol* (Carvedilol*), 6.25 MG ORAL EVERY 12 HOURS, (Reported) Escitalopram Oxalate* (Lexapro*), 10 MG ORAL DAILY, (Reported) Folic Acid* (Folic Acid*), 1 MG ORAL DAILY, (Reported) Levetiracetam* (Levetiracetam*), 500 MG ORAL TWICE A DAY, (Reported) Lisinopril* (Lisinopril*), 10 MG ORAL DAILY, (Reported) Scheduled PRN Docusate Sodium* (Colace*), 100 MG ORAL TWICE A DAY PRN for Constipation, ( Reported) Patient History History Provided By: Patient, Family Member, PMD Healthcare decision maker Resuscitation status Advanced Directive on File No Past Medical/Surgical History Past Medical/Surgical History: (1) acute onset of expressive aphasia. r/o acute iaschemic stroke (2) multiple lacunar strokes, old (3) extensive ischemic cerebrovascular disease (4) chronic seizure disorder, exacerbation Review of Systems Psychiatric: Reports: prior hx, anxiety, depressed feelings, emotional problems Physical Exam General Appearance: no apparent distress, alert, confused Neurologic: alert, responsive, disoriented, depressed affect Last 24 Hour Vital Signs Date Time Temp Pulse Resp B/P (MAP) Pulse Ox O2 Delivery O2 Flow Rate FiO2 03/14/17 12:00 97.9 62 19 137/69 99 Room Air 03/14/17 12:00 69 03/14/17 09:01 63 140/80 03/14/17 09:01 140/80 03/14/17 09:01 63 140/80 03/14/17 08:00 65 03/14/17 07:42 97.0 63 20 140/80 98 Room Air 03/14/17 04:30 97.0 66 20 140/78 99 Room Air 03/14/17 04:00 68 03/14/17 00:00 79 03/13/17 23:45 97.0 68 20 140/80 100 Room Air 03/13/17 21:09 69 144/66 03/13/17 21:09 69 144/66 03/13/17 20:00 71 03/13/17 19:50 97.5 69 20 144/66 99 Room Air Intake and Output 03/14/17 03/15/17 19:00 07:00 Intake Total 200 ml Balance 200 ml Intake Oral 200 ml # Voids 1 Laboratory Tests Test 03/14/17 06:25 White Blood Count 6.0 K/UL (4.8-10.8) Red Blood Count 5.17 M/UL (4.70-6.10) Hemoglobin 13.8 G/DL (14.2-18.0) L Hematocrit 43.3 % (42.0-52.0) Mean Corpuscular Volume 84 FL (80-99) Mean Corpuscular Hemoglobin 26.7 PG (27.0-31.0) L Mean Corpuscular Hemoglobin Concent 31.9 G/DL (32.0-36.0) L Red Cell Distribution Width 12.8 % (11.6-14.8) Platelet Count 273 K/UL (150-450) Mean Platelet Volume 6.8 FL (6.5-10.1) Neutrophils (%) (Auto) 45.2 % (45.0-75.0) Lymphocytes (%) (Auto) 39.5 % (20.0-45.0) Monocytes (%) (Auto) 9.7 % (1.0-10.0) Eosinophils (%) (Auto) 3.9 % (0.0-3.0) H Basophils (%) (Auto) 1.7 % (0.0-2.0) Prothrombin Time 10.8 SEC (9.30-11.50) Prothromb Time International Ratio 1.0 (0.9-1.1) Sodium Level 138 MMOL/L (136-145) Potassium Level 4.7 MMOL/L (3.5-5.1) Chloride Level 106 MMOL/L (98-107) Carbon Dioxide Level 26 MMOL/L (21-32) Anion Gap 6 mmol/L (5-15) Blood Urea Nitrogen 10 mg/dL (7-18) Creatinine 1.1 MG/DL (0.55-1.30) Estimat Glomerular Filtration Rate mL/min (>60) Glucose Level 93 MG/DL (74-106) Calcium Level 8.7 MG/DL (8.5-10.1) Troponin I 0.008 ng/mL (0.000-0.056) Pro-B-Type Natriuretic Peptide 359 pg/mL (0-125) H Triglycerides Level 47 MG/DL (0-200) Cholesterol Level 91 MG/DL (< 200) LDL Cholesterol 53 mg/dL (<100) HDL Cholesterol 31 MG/DL (40-60) L Cholesterol/HDL Ratio 2.9 (3.3-4.4) L Thyroid Stimulating Hormone (TSH) 1.468 uiU/mL (0.360-3.740) Free Thyroxine 1.06 NG/DL (0.10-1.46) Height (Feet): 5 Height (Inches): 10.00 Weight (Pounds): 170 Assessment/Plan Status: stable Assessment/Plan dementia agitation Hiram Awan M.D. Mar 14, 2017 18:52
--- NOTE | 2017-03-14 18:53 | General Progress Note ---
Assessment/Plan Status: stable Subjective Date patient seen: Mar 14, 2017 Neurologic/Psychiatric: Reports: anxiety, depressed, emotional problems Allergies: Coded Allergies: No Known Allergies (Unverified , 07/25/16) Objective Last 24 Hour Vital Signs Date Time Temp Pulse Resp B/P (MAP) Pulse Ox O2 Delivery O2 Flow Rate FiO2 03/14/17 12:00 97.9 62 19 137/69 99 Room Air 03/14/17 12:00 69 03/14/17 09:01 63 140/80 03/14/17 09:01 140/80 03/14/17 09:01 63 140/80 03/14/17 08:00 65 03/14/17 07:42 97.0 63 20 140/80 98 Room Air 03/14/17 04:30 97.0 66 20 140/78 99 Room Air 03/14/17 04:00 68 03/14/17 00:00 79 03/13/17 23:45 97.0 68 20 140/80 100 Room Air 03/13/17 21:09 69 144/66 03/13/17 21:09 69 144/66 03/13/17 20:00 71 03/13/17 19:50 97.5 69 20 144/66 99 Room Air Intake and Output 03/14/17 03/15/17 19:00 07:00 Intake Total 200 ml Balance 200 ml Intake Oral 200 ml # Voids 1 Laboratory Tests 03/14/17 06:25: White Blood Count 6.0, Red Blood Count 5.17, Hemoglobin 13.8L, Hematocrit 43.3, Mean Corpuscular Volume 84, Mean Corpuscular Hemoglobin 26.7L, Mean Corpuscular Hemoglobin Concent 31.9L, Red Cell Distribution Width 12.8, Platelet Count 273, Mean Platelet Volume 6.8, Neutrophils (%) (Auto) 45.2, Lymphocytes (%) (Auto) 39.5, Monocytes (%) (Auto) 9.7, Eosinophils (%) (Auto) 3.9H, Basophils (%) (Auto ) 1.7, Prothrombin Time 10.8, Prothromb Time International Ratio 1.0, Sodium Level 138, Potassium Level 4.7, Chloride Level 106, Carbon Dioxide Level 26, Anion Gap 6, Blood Urea Nitrogen 10, Creatinine 1.1, Estimat Glomerular Filtration Rate , Glucose Level 93, Calcium Level 8.7, Troponin I 0.008, Pro-B- Type Natriuretic Peptide 359H, Triglycerides Level 47, Cholesterol Level 91, LDL Cholesterol 53, HDL Cholesterol 31L, Cholesterol/HDL Ratio 2.9L, Thyroid Stimulating Hormone (TSH) 1.468, Free Thyroxine 1.06 Height (Feet): 5 Height (Inches): 10.00 Weight (Pounds): 170 General Appearance: no apparent distress, alert, confused Neurologic: alert, responsive, disoriented, depressed affect Hiram Awan M.D. Mar 14, 2017 18:53
--- NOTE | 2017-03-14 21:02 | Progress Note ---
DATE: 03/14/2017 SUBJECTIVE: This 71-year-old male who is currently in bed and confused, but he is doing much better. He is in no distress. The patient came with altered mental status, seizure activity. The patient is currently alert, awake, sitting in the chair. He has no distress. OBJECTIVE: VITAL SIGNS: Stable. CHEST: Bilaterally clear. CARDIOVASCULAR: Regular rhythm. No gallop. No murmur. ABDOMEN: Soft. EXTREMITIES: CCE. NEUROLOGICAL: Alert, awake, sitting in the chair, slightly confused. ASSESSMENT AND PLAN: 1. Cerebrovascular accident. 2. Hypertension. 3. Hyperlipidemia. 4. Early dementia. Discussed with the neurologist, Dr. Kimble. EEG results are pending, but he is already on Keppra. He had no seizure for the last three days. Discharge back to the alf. Discharge medication, added Keppra. We will discontinue Coumadin because he is at high risk on the fall. Continue rest of the treatment. Activity, back to chair and continue current treatment. Kenrick Lakhani M.D. DR: VIKASH JOB#: [id number] CC:
--- NOTE | 2017-03-14 23:46 | Electroencephalogram ---
DATE OF PROCEDURE: 03/13/2017 REQUESTING PHYSICIAN: Vin Lakhani M.D. HISTORY: This is a 71-year-old man with multiple strokes in the past and chronic seizure disorder, maintained on Keppra, Norvasc, and Lipitor, admitted with what seems exacerbation of seizures. EEG was requested to identify epileptogenic focus or ongoing seizure activities. During recording, awake, drowsy, or asleep, but poorly cooperative and aphasic. EEG was done using 18 electrodes placed [id number], [id number] montages according to 10/20 International System. Most wakeful portions of recording, background consists of very low voltage, often poorly identifiable frequency activities, predominantly 6 to 7 cycles per second provided by fast or low-voltage beta activities bilaterally. The patient was in and out of drowsiness with further attenuation of background and predominance of theta activities ranging 5 to 7 cycles per second. There was no asymmetry from side to side. There were no spike or wave noted. IMPRESSION: Abnormal EEG in presence of generalized diffuse slowing. COMMENT: The absence of paroxysmal event on a single recording does not rule out seizure disorder. Mainor Kimble M.D. DR: Shubham JOB#: [id number] CC:
--- NOTE | 2017-03-16 15:49 | Cardiology Report ---
APPROVED REPORT EKG Measurement Heart [id number] Normal sinus rhythm Normal ECG
--- NOTE | 2017-03-17 10:22 | Discharge Summary ---
Discharge Summary Hospital Course Date of Admission Mar 12, 2017 at 10:01 Date of Discharge Mar 14, 2017 at 15:47 Admitting Diagnosis seizure HPI Emanuel Elder is a 71 year old male who was admitted on Mar 12, 2017 at 10:01 for Seizure Hospital Course dc summary #[id number] Discharge Medications Continued Medications: Aspirin* (Aspirin*) 325 Mg Tablet 325 MG ORAL DAILY, TAB Atorvastatin Calcium* (Lipitor*) 20 Mg Tablet 20 MG ORAL DAILY, #30 TAB 0 Refills Carvedilol* (Carvedilol*) 6.25 Mg Tablet 6.25 MG ORAL EVERY 12 HOURS, TAB Docusate Sodium* (Colace*) 100 Mg Capsule 100 MG ORAL TWICE A DAY PRN for Constipation, CAP Escitalopram Oxalate* (Lexapro*) 10 Mg Tablet 10 MG ORAL DAILY, TAB Folic Acid* (Folic Acid*) 1 Mg Tablet 1 MG ORAL DAILY, TAB Levetiracetam* (Levetiracetam*) 500 Mg Tablet 500 MG ORAL TWICE A DAY, #60 TAB 0 Refills Lisinopril* (Lisinopril*) 10 Mg Tablet 10 MG ORAL DAILY, TAB Discharge Condition Upon Discharge: stable Discharge Disposition Patient was discharged to SNF/Subacute Facility(03) Discharge Diagnoses: Discharge Instructions Discharge Instructions Special Instructions I have been assigned to complete a D/C Summary on this account. I was not involved in the patient management Nadja Kruse NP (Vanchtein) Mar 17, 2017 10:22
--- NOTE | 2017-03-17 10:51 | Cardiology Report ---
APPROVED REPORT EXAM: Two-dimensional and M-mode echocardiogram with Doppler and color Doppler. INDICATION Seizure Disorder M-Mode DIMENSIONS IVSd1.2 (0.7-1.1cm)Left Atrium (MM)3.9 (1.6-4.0cm) LVDd4.1 (3.5-5.6cm)Aortic Root2.9 (2.0-3.7cm) PWd1.3 (0.7-1.1cm)Aortic Cusp Exc.1.9 (1.5-2.0cm) LVDs2.4 (2.5-4.0cm) PWs2.1 cm Normal left ventricular chamber size, systolic function and wall motion. Left ventricular ejection fraction estimated to be 55%. Concentric left ventricular hypertrophy. Anterior Echo-free space, may be due to pericardial fat or effusion. All other cardiac chamber sizes are within normal limits. Mild focal aortic valve sclerosis with adequate cusp excursion. Mildly thickened mitral valve leaflets with normal excursion. Mild mitral annulus and aortic root calcification. Normal pulmonic valve structure. Normal tricuspid valve structure. IVC at normal size with physiologic collapse. A color flow and spectral Doppler study was performed and revealed: Trace aortic regurgitation. Mild mitral regurgitation. Mitral diastolic velocities suggest reduced left ventricular relaxation c/w mild LV diastolic dysfunction (Grade I ). Mild tricuspid regurgitation. Tricuspid systolic velocities suggests peak right ventricular systolic pressure of 25 mmHg. Trace pulmonic regurgitation present.
--- NOTE | 2017-03-17 17:30 | Discharge Summary 2 SIG ---
DATE OF ADMISSION: 03/12/2017 DATE OF DISCHARGE: 03/14/2017 REASON FOR ADMISSION: 71-year-old male, resident of [facility] facility, with past medical history significant for seizure disorder, hypertension, encephalopathy, multiple CVA, dysphagia, presented from the [facility] facility for evaluation of seizures.. The patient was on Keppra at the facility. No evidence of trauma. The patient was a poor historian. Workup in the emergency room started with CT of the head which was negative for any acute intracranial pathology. MRI of the brain subsequently was done and revealed old lacunar infarct, no evidence of acute intracranial pathology. Blood pressure was slightly elevated - 153/84, pulse oximetry was stable on room air. EKG revealed normal sinus rhythm, no acute ischemic changes. Troponin negative. No focal -neurologic deficits were noted. The patient was admitted for further management. HOSPITAL COURSE: The patient admitted. Neurology and cardiology consults were requested. Neurologist had seen and evaluated the patient, diagnosed the patient with chronic seizure disorder exacerbation as well as extensive ischemic cerebrovascular disease. Electroencephalogram was abnormal in presence of generalized diffuse slowing. The patient was observed for any further paroxysmal events. Keppra dose was increased. No further seizure activity while in the hospital. Aspirin and statin continued. Carotid duplex revealed minimal degree of stenosis of 30%. Lipid panel was stable. Initially, there was question about possible syncope and crts was consulted. Blood pressure was managed with AN inhibitor, beta-lin and clonidine on as-needed basis. No acute ischemic changes on the EKG, normal sinus rhythm. The patient was hydrated with IV fluids. Vital signs were stable. Pulse oximetry was stable on room air. Venous duplex of bilateral lower extremities revealed acute DVT of the proximal superficial femoral vein. The patient was started on Coumadin and Lovenox to bridge to therapeutic INR; however, the patient at high risk for fall , and Coumadin was subsequently stopped. Continue aspirin. Psychiatrist had seen and evaluated the patient, diagnosed the patient with anxiety disorder, optimized psychiatric medication regimen, and placed the patient on Lexapro. The patient was stable for discharge back to [facility] facility. FINAL DIAGNOSES: 1. Chronic seizure disorder exacerbation with persistent postictal state. 2. 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 3. Expressive aphasia with cognitive loss and abnormal gait related to extensive cerebrovascular disease. 4. Hypertension. 5. Hyperlipidemia. 6. Altered mental status secondary to dementia and chronic encephalopathy due to the extensive cerebrovascular disease. 7. Acute deep vein thrombosis, left lower extremity proximal superficial femoral vein. DISCHARGE MEDICATIONS: See medication reconciliation list. DISCHARGE INSTRUCTIONS: The patient discharged to [facility] facility. FOLLOWUP: Follow up with medical doctor at the facility. Kenrick Lakhani M.D. I have been assigned to dictate discharge summary on this account and I was not involved in the patient's management. Nadja Kruse ([facility] N.PChristine DR: Gerber JOB#: [id number] CC: [email or web address]
--- NOTE | 2017-04-01 14:53 | Cardiology Report ---
APPROVED REPORT EKG Measurement Heart [id number] Normal sinus rhythm Normal ECG
== END 2017-03-14 15:47 | DRG 101 ==
LOC: EDBD 08:54 → EMR 09:09 → 2E 10:01 → EDBEDREQ 10:25
DX: G40.909 Epilepsy, unspecified, not intractable, without status epilepticus (principal); F03.90 Unspecified dementia, unspecified severity, without behavioral disturbance, psychotic disturbance, mood disturbance, and anxiety; I82.812 Embolism and thrombosis of superficial veins of left lower extremity; D64.9 Anemia, unspecified; J44.1 Chronic obstructive pulmonary disease with (acute) exacerbation; I69.920 Aphasia following unspecified cerebrovascular disease; I10 Essential (primary) hypertension; Z86.73 Personal history of transient ischemic attack (TIA), and cerebral infarction without residual deficits; I69.320 Aphasia following cerebral infarction; I69.319 Unspecified symptoms and signs involving cognitive functions following cerebral infarction; I69.398 Other sequelae of cerebral infarction; R26.89 Other abnormalities of gait and mobility; E78.5 Hyperlipidemia, unspecified; Z66 Do not resuscitate
CPT/HCPCS: 36415; 70450; 70551; 80048; 80053; 80061; 80164; 80184; 80185; 80299; 80329; 81003; 83880; 84439; 84443; 84484; 85025; 85610; 87081; 93005; 93306; 93880; 93970; 95819; 99285